=== PATIENT | male | born 1955 ===

== ENCOUNTER 2020-03-30 09:17 | Outpatient (CLI) | payer OTHER | END 2020-03-30 09:23 | disposition home or self-care (01) | LOC: SONOGRAMA 09:17 → MAMO-SONO 09:45 | PROVIDERS: ATTEND Internal Medicine Cardiovascular Disease | DX: Q61.02 Congenital multiple renal cysts (principal); I25.10 Atherosclerotic heart disease of native coronary artery without angina pectoris; I11.9 Hypertensive heart disease without heart failure; K80.00 Calculus of gallbladder with acute cholecystitis without obstruction ==

== ENCOUNTER 2021-08-26 08:00 | Outpatient (CLI) | payer OTHER | END 2021-08-26 08:30 | disposition home or self-care (01) | LOC: PPH VACUNA 08:00 | PROVIDERS: ATTEND Emergency Medicine Pediatric Emergency Medicine | DX: Z23 Encounter for immunization (principal) ==

== ENCOUNTER 2022-07-07 07:11 | Outpatient (CLI) | payer OTHER | END 2022-07-07 07:25 | disposition home or self-care (01) | LOC: SONOGRAMA 07:11 | DX: K76.0 Fatty (change of) liver, not elsewhere classified (principal) ==

== ENCOUNTER 2023-07-07 07:48 | Outpatient (CLI) | payer OTHER | END 2023-07-07 07:51 | disposition home or self-care (01) | LOC: SONOGRAMA 07:48 | DX: K76.0 Fatty (change of) liver, not elsewhere classified (principal) ==

== ENCOUNTER 2024-07-12 08:36 | Outpatient (CLI) | payer OTHER | END 2024-07-12 08:40 | disposition home or self-care (01) | LOC: SONOGRAMA 08:36 | DX: K76.0 Fatty (change of) liver, not elsewhere classified (principal) ==